=== PATIENT | male | born 1975 | race Caucasian/White ===

== ENCOUNTER 2017-02-10 12:22 | Emergency (ER) | payer MEDICARE, MEDICAID ==
[~2017-02-10] VITALS: Ht 190.5 cm; Wt 88.6 kg
[2017-02-10 14:25] LABS: BASO # 0.1 K/mm3 (0.0-0.2); BASO % 0.8 % (0.0-1.0); EOS # 0.2 K/mm3 (0.0-0.50); EOS % 1.8 % (0.0-3.0); LARGE UNSTAINED CELL # 0.2 K/mm3 (0.0-0.4); LARGE UNSTAINED CELL % 2.2 % (0.0-4.0); LYMPH % 21.5 % (24.0-44.0); MEAN CORPUSCULAR HEMOGLOBIN 32.1 pg (27.0-33.0); MEAN CORPUSCULAR HGB CONC 35.1 g/dl (32.0-36.5); MEAN CORPUSCULAR VOLUME 91.4 fl (80.0-96.0); MONO # 0.6 K/mm3 (0.0-0.8); MONO % 6.2 % (0.0-5.0); NEUTROPHILS # 6.4 K/mm3 (1.8-7.7); NEUTROPHILS % 67.5 % (36.0-66.0); PLATELET COUNT, AUTOMATED 218 k/mm3 (150-450); RED CELL DISTRIBUTION WIDTH 12.6 % (11.5-14.5); WHITE BLOOD COUNT 9.4 K/mm3 (4.0-10.0)
[2017-02-10 14:40] LABS: ANION GAP 5 MEQ/L (8-16); BLOOD UREA NITROGEN 12 MG/DL (7-18); CALCIUM LEVEL 8.6 MG/DL (8.5-10.1); CARBON DIOXIDE LEVEL 29 MEQ/L (21-32); CHLORIDE LEVEL 107 MEQ/L (98-107); CREATININE FOR GFR 0.92 MG/DL (0.70-1.30); GLOMERULAR FILTRATION RATE > 60.0 (>60); GLUCOSE, FASTING 97 MG/DL (70-105); POTASSIUM SERUM 3.9 MEQ/L (3.5-5.1); SODIUM LEVEL 141 MEQ/L (136-145)
[2017-02-10 15:00] LABS: INR 0.91
--- NOTE | 2017-02-10 15:33 | ED PDOC ---
Post-Departure Follow-Up discussed results with patient, advocated to keep fu with pcp and subsequent colonoscopy/gi consult, feel free to return to ed if sx return Sherri Melvin Feb 10, 2017 15:33
[2017-02-10 15:37] VITALS: BP 134/91
== END 2017-02-10 15:39 | disposition home or self-care (01) ==
LOC: M ED 12:22
DX: K92.2 Gastrointestinal hemorrhage, unspecified (principal); K92.1 Melena; Z80.0 Family history of malignant neoplasm of digestive organs

== ENCOUNTER 2018-11-18 21:13 | Emergency (ER) | payer MEDICAID, MEDICARE, SELFPAY ==
[~2018-11-18] VITALS: Ht 190.5 cm; Wt 90.2 kg
[2018-11-18] MEDS ORDERED: IBUPROFEN 600 MG TAB PO ONE (21:45)
[2018-11-18] MEDS ORDERED: DERMABOND TOPICAL SKIN ADHESIVE TOP ONE (21:45)
[2018-11-18 22:26] VITALS: BP 135/85
== END 2018-11-18 22:30 | disposition home or self-care (01) ==
LOC: M ED 21:13
DX: S61.203A Unspecified open wound of left middle finger without damage to nail, initial encounter (principal); W26.8XXA Contact with other sharp object(s), not elsewhere classified, initial encounter; Y92.008 Other place in unspecified non-institutional (private) residence as the place of occurrence of the external cause; Z88.0 Allergy status to penicillin; Z88.8 Allergy status to other drugs, medicaments and biological substances; F17.210 Nicotine dependence, cigarettes, uncomplicated

== ENCOUNTER 2018-12-16 16:01 | Emergency (ER) | payer MEDICARE, SELFPAY ==
[~2018-12-16] VITALS: Ht 190.5 cm; Wt 90.9 kg
--- NOTE | 2018-12-16 16:34 | REP ---
Clinical: Left ankle trauma . Technique: AP, lateral, bilateral oblique views. Findings: No acute fracture or dislocation. Skeletal structures and joint spaces are intact and normal. Ankle mortise appears stable. No subcutaneous emphysema or radiodense foreign body. Lateral view demonstrates moderate calcaneal heal spur. Impression: No acute fracture or dislocation. Electronically Signed by Juno Hanson MD 12/16/2018 04:25 P
--- NOTE | 2018-12-16 17:39 | REP ---
Clinical: Trauma. Technique: AP, lateral, bilateral oblique views of the left foot. Findings: Nondisplaced fractures at the base of the second and third metatarsal bones are appreciated. Subtle fracture at the metaphyseal base of the third toe proximal phalanx cannot be excluded. Overlying soft tissue swelling. Lateral view demonstrates heal spur. Impression: Nondisplaced fracture at the base of the second and third metatarsal bones. Possible nondisplaced fracture at the metaphyseal base of the third proximal phalanx. Electronically Signed by Juno Hanson MD 12/16/2018 05:30 P
[2018-12-16] MEDS ORDERED: NORC1TAB7 PO (17:42)
[2018-12-16] MEDS ORDERED: NORCO, ANEXSIA 5/325MG TABLET (HYDROcodone/ACETAMINOPHEN) PO ONE (17:45)
[2018-12-16 17:50] VITALS: BP 135/86
== END 2018-12-16 17:55 | disposition home or self-care (01) ==
LOC: M ED 16:01
DX: S92.325A Nondisplaced fracture of second metatarsal bone, left foot, initial encounter for closed fracture (principal); S92.335A Nondisplaced fracture of third metatarsal bone, left foot, initial encounter for closed fracture; X50.1XXA Overexertion from prolonged static or awkward postures, initial encounter; Y92.099 Unspecified place in other non-institutional residence as the place of occurrence of the external cause; Y93.9 Activity, unspecified; Y99.9 Unspecified external cause status; Z72.0 Tobacco use; Z88.0 Allergy status to penicillin; Z88.5 Allergy status to narcotic agent

== ENCOUNTER → 2018-12-26 | Outpatient (REF) | payer SELFPAY ==
[~2018-12-26] MED LIST: NORC1TAB7 PO
[2018-12-26 19:47] LABS: BASO # 0.1 10^3/uL (0.0-0.2); BASO % 0.7 % (0.0-1.0); EOS # 0.2 10^3/uL (0.0-0.50); EOS % 1.4 % (0.0-3.0); HEMATOCRIT 46.6 % (42.0-52.0); HEMOGLOBIN 15.6 g/dl (13.5-17.5); LYMPH # 2.1 10^3/uL (1.5-4.5); LYMPH % 17.9 % (24.0-44.0); MEAN CORPUSCULAR HEMOGLOBIN 30.8 pg (27.0-33.0); MEAN CORPUSCULAR HGB CONC 33.5 g/dl (32.0-36.5); MEAN CORPUSCULAR VOLUME 91.9 fl (80.0-96.0); MONO # 0.9 10^3/uL (0.0-0.8); MONO % 7.3 % (0.0-5.0); NEUTROPHILS # 8.4 10^3/uL (1.8-7.7); NEUTROPHILS % 72.3 % (36.0-66.0); PLATELET COUNT, AUTOMATED 307 10^3/uL (150-450); RED BLOOD COUNT 5.07 10^6/uL (4.30-6.10); WHITE BLOOD COUNT 11.6 10^3/uL (4.0-10.0)
[2018-12-26 20:15] LABS: ALBUMIN 3.8 GM/DL (3.2-5.2); ALT/SGPT 24 U/L (12-78); BILIRUBIN,TOTAL 0.5 MG/DL (0.2-1.0); BLOOD UREA NITROGEN 16 MG/DL (7-18); CALCIUM LEVEL 8.9 MG/DL (8.5-10.1); CARBON DIOXIDE LEVEL 29 MEQ/L (21-32); CHLORIDE LEVEL 105 MEQ/L (98-107); CHOLESTEROL LEVEL 184 MG/DL (<200); CHOLESTEROL RISK RATIO 5.111 (<5); CREATININE FOR GFR 0.87 MG/DL (0.70-1.30); FREE T4 1.04 NG/DL (0.76-1.46); GLOMERULAR FILTRATION RATE > 60.0 (>60); GLUCOSE, FASTING 86 MG/DL (70-100); HDL CHOLESTEROL 36 MG/DL (>40); LDL CHOLESTEROL 125 MG/DL (<100); NON-HDL-C 148 MG/DL; SODIUM LEVEL 140 MEQ/L (136-145); TOTAL PROTEIN 7.3 GM/DL (6.4-8.2); TRIGLYCERIDES LEVEL 113 MG/DL (<150)
[2018-12-26 20:17] LABS: TOTAL 25(OH) VITAMIN D 29.3 NG/ML (30.0-100.0)
[2018-12-26 20:21] LABS: HEMOGLOBIN A1c 5.7 %
== END ==
LOC: M LAB REF 18:38
PROVIDERS: ATTEND Nurse Practitioner Family
DX: Z13.9 Encounter for screening, unspecified (principal)

== ENCOUNTER → 2022-04-05 | Outpatient (REF) | payer MEDICARE | LOC: M LAB REF 11:46 | PROVIDERS: ATTEND Nurse Practitioner Family | DX: E03.9 Hypothyroidism, unspecified (principal) ==

== ENCOUNTER → 2022-11-14 | Outpatient (CLI) | payer MEDICARE, MEDICAID | LOC: M RAD 10:06 | PROVIDERS: ATTEND Physician Assistant | DX: S52.572A Other intraarticular fracture of lower end of left radius, initial encounter for closed fracture (principal); X58.XXXA Exposure to other specified factors, initial encounter; Y92.9 Unspecified place or not applicable; Y93.9 Activity, unspecified; Y99.9 Unspecified external cause status ==

== ENCOUNTER → 2022-11-15 | Outpatient (CLI) | payer MEDICARE, MEDICAID | LOC: M SOG 15:27 | PROVIDERS: ATTEND Physician Assistant | DX: S52.125A Nondisplaced fracture of head of left radius, initial encounter for closed fracture (principal) ==

== ENCOUNTER → 2022-11-24 | Outpatient (CLI) | payer MEDICARE, MEDICAID | LOC: M SOG 10:42 | PROVIDERS: ATTEND Physician Assistant | DX: S52.125D Nondisplaced fracture of head of left radius, subsequent encounter for closed fracture with routine healing (principal) ==

== ENCOUNTER → 2022-12-15 | Outpatient (CLI) | payer MEDICARE, MEDICAID | LOC: M SOG 09:31 | PROVIDERS: ATTEND Physician Assistant | DX: S52.125D Nondisplaced fracture of head of left radius, subsequent encounter for closed fracture with routine healing (principal); X58.XXXD Exposure to other specified factors, subsequent encounter ==

== ENCOUNTER → 2022-12-19 | Outpatient (REF) | payer MEDICARE, MEDICAID ==
[2022-12-19 17:45] LABS: HEMOGLOBIN A1c 5.6 % (4.0-6.0)
[2022-12-19 17:51] LABS: CHOLESTEROL RISK RATIO 6.18 (<5); HDL CHOLESTEROL 33.8 MG/DL (>40); LDL CHOLESTEROL 128.2 MG/DL (<100); NON-HDL-C 175.2 MG/DL
[2022-12-19 17:53] LABS: THYROID STIMULATING HORMONE 2.787 uIU/ML (0.55-4.78)
== END ==
LOC: M LAB REF 16:40
PROVIDERS: ATTEND Nurse Practitioner Family
DX: E03.9 Hypothyroidism, unspecified (principal); R63.5 Abnormal weight gain; E78.5 Hyperlipidemia, unspecified; Z79.899 Other long term (current) drug therapy

== ENCOUNTER 2024-03-29 20:20 | Emergency (ER) | payer MEDICARE, MEDICAID ==
[~2024-03-29] VITALS: Ht 190.5 cm; Wt 122.7 kg
[2024-03-29] MEDS ORDERED: LEVO1TAB39 PO (21:55)
[2024-03-29] MEDS: LevoFLOXacin 750 MG TABLET PO ONE (22:11)
[2024-03-29 22:16] VITALS: BP 132/78; TEMP 98; O2SAT 97
== END 2024-03-29 22:22 | disposition home or self-care (01) ==
LOC: M ED 20:20
DX: N45.3 Epididymo-orchitis (principal); Z88.0 Allergy status to penicillin; Z88.5 Allergy status to narcotic agent